=== PATIENT | male | born 1950 | race American Indian/Alaskan Native ===

== ENCOUNTER 2018-04-07 17:27 | Emergency (ER) | payer MEDICARE ==
[2018-04-07] MEDS ORDERED: ATROVENT IH ONE (18:38)
[2018-04-07] MEDS ORDERED: NORCO 5/325 PO ONE (18:38)
[2018-04-07] MEDS ORDERED: PROVENTIL IH ONE (18:38)
--- NOTE | 2018-04-07 18:44 | Emergency Department Report ---
HPI - General Chief Complaint: Pain General Time Seen by Provider: 04/07/18 18:27 - HPI HPI: Room 20 The patient is a 67-year-old male presenting with a chief complaint of low back and left lower extremity pain. The patient states she has had pain from his low back radiating down to the left lower extremity for the past 4-5 months. Patient states the pain is worse with lying down or flexing left lower extremity at the hip. Patient also complains of shortness of breath and wheezing for one week. Patient denies any history of fever. Location: [See above] Duration: [See above] Quality: Pain Severity: Moderate Modifying factors: [see above] Context: [see above] Mode of transportation: [not driving] ED Past Medical Hx - Past Medical History Hx Hypertension: Yes Hx CVA: Yes (R sided deficits) Hx Diabetes: Yes Hx COPD: Yes - Surgical History Additional Surgical History: back - Family History Family history: no significant - Social History Smoking Status: Never Smoker Substance Use Type: None - Medications Home Medications: Home Medications Medication Instructions Recorded Confirmed Last Taken Type HYDROcodone/APAP 5-325 [[place] 1 - 2 each PO Q6HR PRN #14 tablet 04/07/18 Unknown Rx 5/325] ED Review of Systems ROS: Stated complaint: /LOW BLOOD PRESSURE Other details as noted in HPI Constitutional: denies: fever Eyes: denies: eye pain ENT: denies: throat pain Respiratory: cough, shortness of breath Cardiovascular: denies: chest pain Endocrine: no symptoms reported Gastrointestinal: denies: abdominal pain Genitourinary: denies: dysuria Musculoskeletal: back pain Neurological: denies: headache Physical Exam - Physical Exam Vital Signs: Vital Signs 04/07/18 18:01 Temperature 98.8 F Pulse Rate 78 Respiratory 24 Rate Blood Pressure 109/73 O2 Sat by Pulse 96 Oximetry Physical Exam: GENERAL: The patient is well-developed well-nourished male lying on stretcher not appearing to be in acute distress. [] HEENT: Normocephalic. Atraumatic. Right eye taped shut secondary to previous CVA. Patient has moist mucous membranes. NECK: Supple. Trachea midline CHEST/LUNGS: Diffuse wheezing. HEART/CARDIOVASCULAR: Regular. There is no tachycardia. There is no gallop rub or murmur. ABDOMEN: Abdomen is soft, nontender. Patient has normal bowel sounds. There is no abdominal distention. SKIN: There is no rash. There is no edema. There is no diaphoresis. NEURO: The patient is awake, alert, and oriented. The patient is cooperative. The patient has normal speech MUSCULOSKELETAL: Positive straight leg raise test on the left. There is no evidence of acute injury. ED Course Vital Signs 04/07/18 18:01 Temperature 98.8 F Pulse Rate 78 Respiratory 24 Rate Blood Pressure 109/73 O2 Sat by Pulse 96 Oximetry - Reevaluation(s) Reevaluation #1: 04/07/18 22:25 Patient states his breathing feels "good." ED Medical Decision Making - Lab Data Result diagrams: 04/07/18 18:44 04/07/18 18:44 - Radiology Data Radiology results: report reviewed (chest x-ray, CT abdomen and pelvis), image reviewed (chest x-ray, CT abdomen and pelvis) interpreted by me: Chest x-ray-no focal infiltrates, no pneumothorax [address] [address] XRay Report Signed Patient: LUI STOKES MR#: [id number] : 1950 Acct:[id number] Age/Sex: 67 / M ADM Date: 04/07/18 Loc: ED Attending Dr: Ordering Physician: SHANNAN IBARRA MD Date of Service: 04/07/18 Procedure(s): XR chest 1V ap Accession Number(s): [id number] cc: SHANNAN IBARRA MD Fluoro Time In Minutes: FINAL REPORT EXAM: XR CHEST 1V AP HISTORY: shortness of breath TECHNIQUE: upright single view chest PRIORS: None. FINDINGS: Cardiac and mediastinal contours are unremarkable. No focal pulmonary infiltrate is identified. No pleural fluid collection seen. Pulmonary vasculature is unremarkable. IMPRESSION: Negative single-view chest Transcribed By: [facility] Dictated By: RISA NAVA MD Electronically Authenticated By: RISA NAVA MD Signed Date/Time: 04/07/181929 DD/ 29 TD/TT: 04/07/181929 [address] [address] Cat Scan Report Signed Patient: LUI STOKES MR#: [id number] : 1950 Acct:[id number] Age/Sex: 67 / M ADM Date: 04/07/18 Loc: ED Attending Dr: Ordering Physician: SHANNAN IBARRA MD Date of Service: 04/07/18 Procedure(s): CT abdomen pelvis wo con Accession Number(s): [id number] cc: SHANNAN IBARRA MD FINAL REPORT EXAM: CT ABDOMEN PELVIS WO CON HISTORY: left back pain, hematuria TECHNIQUE: CT abdomen and pelvis without contrast PRIORS: None. FINDINGS: No acute abnormality identified in the lung bases. No focal abnormality identified within the liver parenchyma. The spleen demonstrates normal size and attenuation. No pancreatic abnormalities seen. Kidneys demonstrate no evidence of hydronephrosis or nephrolithiasis. No ureteral calculus identified. The adrenal glands are unremarkable. Abdominal aorta is normal in caliber. No pathologically enlarged lymph nodes are identified. No signs of free fluid or free air No evidence of small bowel dilatation. There are no pericolonic inflammatory changes present. At the dome of the bladder there is asymmetric thickening with masslike appearance measuring 1.55 centimeters suspicious for bladder neoplasm. Bladder is mildly distended. IMPRESSION: 1.5 centimeter mass at the dome of the bladder suspicious for neoplasm No evidence for nephrolithiasis or obstructive uropathy Transcribed By: Maribel Dictated By: RISA NAVA MD Electronically Authenticated By: RISA NAVA MD Signed Date/Time: 04/07/182216 DD/ 16 TD/TT: 04/07/182216 - Medical Decision Making CT findings discussed with the patient and . The concern for bladder CA and need for prompt urological follow-up was discussed. Patient and verbalized understanding. - Differential Diagnosis lumbar radiculopathy, COPD exacerbation Critical care attestation.: If time is entered above; I have spent that time in minutes in the direct care of this critically ill patient, excluding procedure time. ED Disposition Clinical Impression: Lumbar radiculopathy, COPD exacerbation, Shortness of breath, Back pain, Bladder mass Disposition: TO HOME OR SELFCARE Is pt being admited?: No Does the pt Need Aspirin: No Condition: Stable Instructions: Chronic Obstructive Pulmonary Disease (ED) Additional Instructions: Return to the emergency department immediately should you develop worsening symptoms, fever, inability to tolerate food or liquid or any other concerns. Prescriptions: HYDROcodone/APAP 5-325 [[place] 5/325] 1 - 2 each PO Q6HR PRN #14 tablet PRN Reason: Pain Referrals: PRIMARY CARE, [Primary Care Provider] - 3-5 Days CAROLINA VAZQUEZ MD [Staff Physician] - [facility] (Dr. Vazquez is a urologist. Please follow up with him for further evaluation of your bladder mass.) Time of Disposition: 22:26
[2018-04-07 18:56] LABS: Basophils # (Auto) 0.1 K/mm3 (0.0-0.1); Basophils % (Auto) 0.8 % (0.0-1.8); Eosinophils # (Auto) 0.7 K/mm3 (0.0-0.4); Eosinophils % (Auto) 10.9 % (0.0-4.3); Hematocrit 32.6 % (35.5-45.6); Hemoglobin 10.7 gm/dl (11.8-15.2); Lymphocytes # (Auto) 1.6 K/mm3 (1.2-5.4); Lymphocytes % (Auto) 25.3 % (13.4-35.0); Mean Corpuscular HGB Conc 33 % (32-34); Mean Corpuscular Hemoglobin 30 pg (28-32); Mean Corpuscular Volume 91 fl (84-94); Monocytes # (Auto) 0.4 K/mm3 (0.0-0.8); Monocytes % (Auto) 6.9 % (0.0-7.3); Platelet Count 183 K/mm3 (140-440); Red Blood Count 3.57 M/mm3 (3.65-5.03)
[2018-04-07 19:09] LABS: Calcium 8.4 mg/dL (8.4-10.2)
--- NOTE | 2018-04-07 19:31 | XRay Report ---
FINAL REPORT EXAM: XR CHEST 1V AP HISTORY: shortness of breath TECHNIQUE: upright single view chest PRIORS: None. FINDINGS: Cardiac and mediastinal contours are unremarkable. No focal pulmonary infiltrate is identified. No pleural fluid collection seen. Pulmonary vasculature is unremarkable. IMPRESSION: Negative single-view chest
[2018-04-07 20:37] LABS: Bilirubin,Urine NEG (Negative); Blood,Urine LG (Negative); Color,Urine Yellow (Yellow); Mucus,Urine FEW /HPF; Protein,Urine <15 mg/dL mg/dL (Negative); Urobilinogen,Urine < 2.0 mg/dL (<2.0)
--- NOTE | 2018-04-07 22:17 | Cat Scan Report ---
FINAL REPORT EXAM: CT ABDOMEN PELVIS WO CON HISTORY: left back pain, hematuria TECHNIQUE: CT abdomen and pelvis without contrast PRIORS: None. FINDINGS: No acute abnormality identified in the lung bases. No focal abnormality identified within the liver parenchyma. The spleen demonstrates normal size and attenuation. No pancreatic abnormalities seen. Kidneys demonstrate no evidence of hydronephrosis or nephrolithiasis. No ureteral calculus identified. The adrenal glands are unremarkable. Abdominal aorta is normal in caliber. No pathologically enlarged lymph nodes are identified. No signs of free fluid or free air No evidence of small bowel dilatation. There are no pericolonic inflammatory changes present. At the dome of the bladder there is asymmetric thickening with masslike appearance measuring 1.55 centimeters suspicious for bladder neoplasm. Bladder is mildly distended. IMPRESSION: 1.5 centimeter mass at the dome of the bladder suspicious for neoplasm No evidence for nephrolithiasis or obstructive uropathy
[2018-04-07 22:32] VITALS: BP 140/80
== END 2018-04-07 23:02 | disposition home or self-care (01) ==
LOC: ED 17:27
DX: M54.16 Radiculopathy, lumbar region (principal); J44.1 Chronic obstructive pulmonary disease with (acute) exacerbation; N32.9 Bladder disorder, unspecified; I10 Essential (primary) hypertension; E11.9 Type 2 diabetes mellitus without complications; Z86.73 Personal history of transient ischemic attack (TIA), and cerebral infarction without residual deficits
CPT/HCPCS: 36415; 71045; 74176; 80048; 81001; 85025; 94640

== ENCOUNTER 2018-09-26 11:41 | Outpatient (CLI) | payer MEDICARE ==
--- NOTE | 2018-09-26 13:45 | XRay Report ---
CERVICAL SPINE, 5 VIEWS History: Neck pain, right shoulder pain. Findings: Slightly limited exam with a patient in a wheelchair. Osteopenia is evident. There is no evidence for fracture, malalignment or bony lesion. Minimal degenerative disc narrowing is noted at C5-6 and C6-7. The remaining disc levels and facet joints are unremarkable. The oblique images are of good quality and demonstrate no significant bony narrowing of the neural foramen. Impression: Osteopenia. Minimal cervical spondylosis.
== END 2018-09-26 11:42 | disposition home or self-care (01) ==
LOC: XRAY 11:41
PROVIDERS: ATTEND Family Medicine
DX: M47.812 Spondylosis without myelopathy or radiculopathy, cervical region (principal); M85.88 Other specified disorders of bone density and structure, other site; I10 Essential (primary) hypertension; E11.9 Type 2 diabetes mellitus without complications; J44.9 Chronic obstructive pulmonary disease, unspecified; K21.9 Gastro-esophageal reflux disease without esophagitis; Z87.891 Personal history of nicotine dependence
CPT/HCPCS: 72050

== ENCOUNTER 2019-01-25 13:08 | Day surgery (SDC) | payer MEDICARE ==
[~2019-01-25 13:08] MED LIST: ANCEF/STERILE WATER 2 GM/20 ML IV NR
[2019-01-25] MEDS ORDERED: NACL 0.9% 1000 ML 1,000 ML IV SCH (14:00)
[2019-01-25] MEDS ORDERED: HumuLIN R IV ONE (14:01)
[2019-01-25] MEDS ORDERED: HumuLIN R ONE (14:03)
--- NOTE | 2019-01-25 14:32 | Anesthesia Consultation ---
Anesthesia Consult and Med Hx Date of service: 01/25/19 - Airway Anesthetic Teeth Evaluation: Good ROM Head & Neck: Adequate Mental/Hyoid Distance: Adequate Mallampati Class: Class III Intubation Access Assessment: Probably Good - Pulmonary Exam CTA: Yes - Cardiac Exam Cardiac Exam: RRR - Pre-Operative Health Status ASA Pre-Surgery Classification: ASA3 Proposed Anesthetic Plan: General - Pulmonary Hx Smoking: Yes (STOPPED X 30 YRS) Hx Asthma: Yes (INHALERS PRN) COPD: Yes Hx Sleep Apnea: No (LEON PRE SCREEN HIGH RISK) - Cardiovascular System Hx Hypertension: Yes (X 21 YRS) - Central Nervous System CVA: Yes (RT SIDED WEAKNESS,MILD SLURRED SPEECH) Hx Back Pain: Yes (NECK AND BACK PAIN) - Endocrine Hx Insulin Dependent Diabetes: Yes - Additional Comments Anesthesia Medical History Comments: S/P right sided CVA , HTN, DM,Asthma,GERD for GA
--- NOTE | 2019-01-25 14:33 | Anesthesia Day of Surgery ---
Anesthesia Day of Surgery - Day of Surgery Patient Examined: Yes Patient H&P Reviewed: Yes Patient is NPO: Yes
[2019-01-25] MEDS ORDERED: PEPCID IV NR (15:00)
[2019-01-25] MEDS ORDERED: HumuLIN R IV SCH (15:01)
[2019-01-25] MEDS ORDERED: FLAGYL 500 MG/100 ML 500 MG/100 ML BAG IV NR (16:17)
[2019-01-25] MEDS ORDERED: SUBLIMAZE ONE (17:00)
[2019-01-25] MEDS ORDERED: DIPRIVAN 10 MG/ML IV ONE (17:00)
[2019-01-25] MEDS ORDERED: WATER FOR IRRIG STERILE IR ONE (17:45)
[2019-01-25] MEDS: DILAUDID IV PRN ×2 (18:10→18:25)
--- NOTE | 2019-01-25 18:10 | Short Stay Summary ---
Short Stay Documentation Date of service: 01/25/19 - History H&P: obtained from office - Allergies and Medications Current Medications: Allergies aspirin Allergy (Verified 06/28/18 10:16) Rash ibuprofen Allergy (Verified 04/07/18 18:18) Shortness of Breath piperacillin [From Zosyn] Allergy (Verified 06/28/18 10:16) Rash tazobactam [From Zosyn] Allergy (Verified 06/28/18 10:16) Rash levofloxacin [From Levaquin] Adverse Reaction (Verified 01/25/19 14:04) Rash peanut Adverse Reaction (Verified 01/25/19 14:05) Rash Penicillins Adverse Reaction (Verified 01/25/19 14:04) Rash Home Medications Medication Instructions Recorded Confirmed Last Taken Type ALBUTEROL Inhaler(NF) [VENTOLIN 1 puff IH PRN PRN 06/28/18 01/25/19 01/24/19 09:00 History Inhaler(NF)] Clopidogrel Bisulfate [Plavix] 75 mg PO DAILY 06/28/18 01/25/19 01/18/19 09:00 History Insulin Aspart [Novolog] 6 units SQ TID 06/28/18 01/25/19 01/24/19 16:00 History Insulin Glargine [Lantus] 60 unit SUB-Q QHS 06/28/18 01/25/19 01/24/19 19:00 History Oxycodone HCl/Acetaminophen 1 each PO Q6HR PRN 07/06/18 01/25/19 01/24/19 09:00 History [Percocet 7.5/325 mg] Polyethylene Glycol 3350 [Miralax 17 gm PO QDAY 07/06/18 01/25/19 01/24/19 09:00 History 3350] Active Medications Famotidine (Pepcid) 20 mg IV PREOP NR Stop: 01/25/19 23:59 Last Admin: 01/25/19 14:45 Dose: 20 mg Documented by: Hydromorphone HCl (Dilaudid) 0.25 mg IV Q10MIN PRN PRN Reason: Pain, Moderate (4-6) Sodium Chloride (Nacl 0.9% 1000 Ml) 1,000 mls @ 75 mls/hr IV DIRECT AURELIA Last Admin: 01/25/19 14:05 Dose: 75 mls/hr Documented by: Metronidazole (Flagyl 500 Mg/100 Ml) 500 mg in 100 mls @ 200 mls/hr IV PREOP NR; Protocol Stop: 01/25/19 23:00 Insulin Human Regular (Humulin R) 4 units IV ONCE AURELIA Stop: 01/25/19 23:59 Last Admin: 01/25/19 15:05 Dose: 4 units Documented by: - Brief post op/procedure progress note Date of procedure: 01/25/19 Pre-op diagnosis: bladder ca Procedure: cysto, rpg, bladder bx Anesthesia: GETA Surgeon: CAROLINA JIMENEZ Estimated blood loss: minimal Pathology: list (bladder bx) Specimen disposition: to lab Condition: stable - Hospital course Hospital course: macrobid, norco, flohayden on chart - Disposition Condition at discharge: Stable Disposition: DC-01 TO HOME OR SELFCARE Short Stay Discharge Plan Follow up with: NAEL RICHARDSON MD [Primary Care Provider] - 7 Days
--- NOTE | 2019-01-25 18:28 | Post Anesthesia Evaluation ---
- Post Anesthesia Evaluation Patient Participated: Yes Airway Patent: Yes Stable Respiratory Function: Yes Nausea/Vomiting: No Temp > 96.8F: Yes Pain Manageable: Yes Adequeate Hydration: Yes Anesthesia Complications: No Block Receding Appropriately: Not Applicable Patient on Ventilator: No
[2019-01-25 19:09] VITALS: BP 123/68
--- NOTE | 2019-01-25 20:20 | Operative Report ---
PREOPERATIVE DIAGNOSIS: Bladder cancer. POSTOPERATIVE DIAGNOSES: Bladder cancer, benign prostatic hypertrophy. PROCEDURE: Cystoscopy, bilateral retrograde pyelograms, random bladder biopsies. SURGEON: Christian Vazquez MD ANESTHESIA: General. ESTIMATED BLOOD LOSS: Minimal. FLUIDS: Crystalloid. COMPLICATIONS: No complications. INDICATIONS: This patient is a 68-year-old gentleman seen in the office, has a history of bladder mass, transurethral resection of the mass in 06/2018, was consistent with invasive transitional cell carcinoma T1. Based on those findings, he underwent 6 weeks of gemcitabine. He presents now for surveillance cystoscopy. Risks, benefits, and complications were explained. DESCRIPTION OF PROCEDURE: The patient was taken to the operative suite, placed in a supine position. After adequate general anesthesia, placed in a dorsal lithotomy position, prepped and draped in a sterile fashion. Had some mild meatal stenosis. Urethral dilatation was performed also. Cystoscopy was performed. The urethra was normal except for some mild meatal stenosis. Prostate displayed some mild trilobar obstruction. Bladder had cloudy urine, this was cultured. Specimen sent for culture. After bladder wash, the fluid was now clear. No obvious tumors could be appreciated. There was some inflammation. Random bladder biopsies were obtained and fulgurated. Bilateral retrograde pyelograms were obtained with an 8-Guyanese Kulwant catheter and 8 mL of contrast. No filling defects or obstruction. Rectal exam was benign. We will leave an 18-Guyanese Mckeon catheter. He was extubated and taken to recovery room. He will go home on [place] and Macrobid and continue Flomax 1 every day. JOB# [id number] [employer]
--- NOTE | 2019-01-26 07:54 | Fluoroscopy Report ---
FLUOROSCOPY RETROGRADE UROGRAPHY: HISTORY: BPH, bladder cancer who. FINDINGS: Fluoroscopy was provided by radiology during retrograde urography by the urologist. 8 fluoroscopic images were captured. Compared to 07/11/18. There is adequate filling of the ureters and intrarenal collecting systems with no filling defects or anatomic abnormalities identified. Bladder biopsy was performed per the operative note. Please correlate with the procedural report if needed. IMPRESSION: Retrograde pyelograms within normal limits.
== END 2019-01-25 20:00 | disposition home or self-care (01) ==
LOC: OR 13:08
PROVIDERS: ATTEND Urology
DX: N30.80 Other cystitis without hematuria (principal); C67.9 Malignant neoplasm of bladder, unspecified; N35.811 Other urethral stricture, male, meatal; J44.9 Chronic obstructive pulmonary disease, unspecified; N40.0 Benign prostatic hyperplasia without lower urinary tract symptoms; I10 Essential (primary) hypertension; E11.9 Type 2 diabetes mellitus without complications; E78.5 Hyperlipidemia, unspecified; E78.00 Pure hypercholesterolemia, unspecified; K21.9 Gastro-esophageal reflux disease without esophagitis; Z87.891 Personal history of nicotine dependence; Z79.899 Other long term (current) drug therapy; Z88.0 Allergy status to penicillin; Z88.6 Allergy status to analgesic agent; Z88.1 Allergy status to other antibiotic agents; Z88.8 Allergy status to other drugs, medicaments and biological substances; Z79.4 Long term (current) use of insulin; Z98.890 Other specified postprocedural states; Z98.49 Cataract extraction status, unspecified eye; Z87.440 Personal history of urinary (tract) infections
CPT/HCPCS: 52204; 74420; 82962; 87086; 88305; A4217; C1758; J1170; J2704; J3010; J7030; Q9967; J0690; J1815

== ENCOUNTER 2019-03-23 10:26 | Outpatient (CLI) | payer MEDICARE ==
--- NOTE | 2019-03-23 11:30 | XRay Report ---
LEFT HIP, 2 VIEWS INDICATION: Left hip pain. COMPARISON: None. IMPRESSION: Osteopenia is noted. There is no evidence for fracture, dislocation or bone lesion. No o steonecrosis. Mild osteoarthritic changes are identified. The left hemipelvis is intact. LEFT KNEE, 3 VIEWS INDICATION: LEFT KNEE PAIN. COMPARISON: None. IMPRESSION: Osteopenia is noted. No acute osseous findings or bone lesion is identified. Mild osteo arthritic changes are noted in the patellofemoral space. No joint effusion is identified. Moderate va scular calcifications are noted in the posterior soft tissues. Signer Name: Sandoval Barragan Jr, MD Signed: 03/23/2019 11:26 AM Workstation Name: [id number]
== END 2019-03-23 10:27 | disposition home or self-care (01) ==
LOC: XRAY 10:26
PROVIDERS: ATTEND Family Medicine
DX: M16.12 Unilateral primary osteoarthritis, left hip (principal); M17.12 Unilateral primary osteoarthritis, left knee; M85.862 Other specified disorders of bone density and structure, left lower leg; M85.88 Other specified disorders of bone density and structure, other site; I10 Essential (primary) hypertension; E78.5 Hyperlipidemia, unspecified; J44.9 Chronic obstructive pulmonary disease, unspecified; E78.00 Pure hypercholesterolemia, unspecified

== ENCOUNTER 2019-04-17 18:35 | Emergency (ER) | payer MEDICARE ==
[2019-04-17 18:53] VITALS: BP 0/0
--- NOTE | 2019-04-17 19:09 | Emergency Department Report ---
ED CPR HPI - General Chief Complaint: Cardiac Arrest/CPR Stated Complaint: CARDIAC ARREST Time Seen by Provider: 04/17/19 18:38 Source: EMS (verbal report received from EMS. EMS documentation not available at time of chart dictation ), RN notes reviewed, old records reviewed Mode of arrival: Stretcher Limitations: Other - History of Present Illness Initial Comments: This is a 68-year-old gentleman, brought to the hospital by emergency medical services, as an out of hospital cardiac arrest. Patient is reportedly found down, for uncertain duration of time and uncertain mechanism. As per EMS, patient pulseless, and a non-shockable rhythm, 4 greater than 50 minutes. Patient received standard CPR, ACLS, and multiple intravenous medications. Upon arrival to the emergency room, patient in a coma, GCS of 3, receiving CPR, with a supraglottic airway device. He does not have a shockable rhythm. Pupils do not react to light. Given prolonged downtime, lack of shockable rhythm, lack of pupillary activity, this is a medically futile resuscitation, and efforts are subsequently terminated. Family is not currently available at this time. MD Complaint: found unresponsive -: unknown Initial Findings in the Field: PEA Treatments Prior to Arrival: intubation, other airway device, chest compressions, epinephrine mgs # (6) - Related Data Home Medications Medication Instructions Recorded Confirmed Last Taken ALBUTEROL Inhaler(NF) [VENTOLIN 1 puff IH PRN PRN 06/28/18 01/25/19 01/24/19 09:00 Inhaler(NF)] Clopidogrel Bisulfate [Plavix] 75 mg PO DAILY 06/28/18 01/25/19 01/18/19 09:00 Insulin Aspart [Novolog] 6 units SQ TID 06/28/18 01/25/19 01/24/19 16:00 Insulin Glargine [Lantus] 60 unit SUB-Q QHS 06/28/18 01/25/19 01/24/19 19:00 Oxycodone HCl/Acetaminophen 1 each PO Q6HR PRN 07/06/18 01/25/19 01/24/19 09:00 [Percocet 7.5/325 mg] Polyethylene Glycol 3350 [Miralax 17 gm PO QDAY 07/06/18 01/25/19 01/24/19 09:00 3350] Allergies Allergy/AdvReac Type Severity Reaction Status Date / Time aspirin Allergy Rash Verified 06/28/18 10:16 ibuprofen Allergy Shortness Verified 04/07/18 18:18 of Breath piperacillin [From Zosyn] Allergy Rash Verified 06/28/18 10:16 tazobactam [From Zosyn] Allergy Rash Verified 06/28/18 10:16 levofloxacin [From Levaquin] AdvReac Rash Verified 01/25/19 14:04 peanut AdvReac Rash Verified 01/25/19 14:05 Penicillins AdvReac Rash Verified 01/25/19 14:04 ED Review of Systems ROS: Stated complaint: CARDIAC ARREST Other details as noted in HPI Comment: Unobtainable due to pts medical conditions ED Past Medical Hx - Past Medical History Hx Hypertension: Yes (X 21 YRS) Hx CVA: Yes (R sided deficits) Hx Diabetes: Yes Hx GERD: Yes Hx Asthma: Yes (INHALERS PRN) Hx COPD: Yes Hx HIV: No - Surgical History Additional Surgical History: back - Social History Smoking Status: Unknown if ever smoked - Medications Home Medications: Home Medications Medication Instructions Recorded Confirmed Last Taken Type ALBUTEROL Inhaler(NF) [VENTOLIN 1 puff IH PRN PRN 06/28/18 01/25/19 01/24/19 09:00 History Inhaler(NF)] Clopidogrel Bisulfate [Plavix] 75 mg PO DAILY 06/28/18 01/25/19 01/18/19 09:00 History Insulin Aspart [Novolog] 6 units SQ TID 06/28/18 01/25/19 01/24/19 16:00 History Insulin Glargine [Lantus] 60 unit SUB-Q QHS 06/28/18 01/25/19 01/24/19 19:00 History Oxycodone HCl/Acetaminophen 1 each PO Q6HR PRN 07/06/18 01/25/19 01/24/19 09:00 History [Percocet 7.5/325 mg] Polyethylene Glycol 3350 [Miralax 17 gm PO QDAY 07/06/18 01/25/19 01/24/19 09:00 History 3350] ED Physical Exam - General Limitations: Other (intubated, nonverbal) General appearance: obtunded - Head Head exam: Present: atraumatic - Eye Eye exam: Present: other (pupils do not react to light) - ENT ENT exam: Present: normal external ear exam, other (supraglottic airway noted) - Neck Neck exam: Present: normal inspection - Respiratory Respiratory exam: Present: other (no spontaneous breath sounds noted.) - Cardiovascular Cardiovascular Exam: Present: other (the patient is pulseless) - GI/Abdominal GI/Abdominal exam: Present: soft - Extremities Exam Extremities exam: Present: normal inspection, pedal edema, other (no pulses noted) - Back Exam Back exam: Present: normal inspection - Neurological Exam Neurological exam: Present: altered, other (GCS of 3) - Psychiatric Psychiatric exam: Present: other (patient is nonverbal) - Skin Skin exam: Present: dry ED Course Vital Signs 04/17/19 18:50 Temperature 0 F L Pulse Rate 0 L Respiratory 0 L Rate Blood Pressure 0/0 O2 Sat by Pulse 0 L Oximetry ED Medical Decision Making - Lab Data Vital Signs 04/17/19 18:50 Temperature 0 F L Pulse Rate 0 L Respiratory 0 L Rate Blood Pressure 0/0 O2 Sat by Pulse 0 L Oximetry - Medical Decision Making Differential diagnosis, including not limited to: Cardiac arrest, acute coronary syndrome, sepsis, bleed, pulmonary embolism Critical care attestation.: If time is entered above; I have spent that time in minutes in the direct care of this critically ill patient, excluding procedure time. ED Disposition Clinical Impression: Cardiac arrest Disposition: DC-20 Is pt being admited?: No Does the pt Need Aspirin: No Condition: Undetermined
== END 2019-04-17 22:25 ==
LOC: ED 18:35
DX: I46.9 Cardiac arrest, cause unspecified (principal); I10 Essential (primary) hypertension; E11.9 Type 2 diabetes mellitus without complications; J44.9 Chronic obstructive pulmonary disease, unspecified; K21.9 Gastro-esophageal reflux disease without esophagitis; Z86.73 Personal history of transient ischemic attack (TIA), and cerebral infarction without residual deficits; Z88.2 Allergy status to sulfonamides; Z88.5 Allergy status to narcotic agent; Z88.1 Allergy status to other antibiotic agents; Z88.8 Allergy status to other drugs, medicaments and biological substances; Z79.4 Long term (current) use of insulin; Z79.899 Other long term (current) drug therapy; Z91.010 Allergy to peanuts
CPT/HCPCS: 92950